=== PATIENT | female | born 1970 ===

== ENCOUNTER 2023-10-26 15:17 | Emergency (ER) | payer OTHER | END 2023-10-26 18:49 | disposition home or self-care (01) | LOC: CSHERS 15:17 | DX: E86.0 Dehydration (principal); I11.0 Hypertensive heart disease with heart failure; I50.9 Heart failure, unspecified; F17.210 Nicotine dependence, cigarettes, uncomplicated | CPT/HCPCS: 36415; 80053; 80307; 85025; 93005; 96374; J1885 ==